=== PATIENT | female | born 1955 | race Caucasian/White ===

== ENCOUNTER 2017-08-29 00:02 | Emergency (ER) | payer BC ==
[~2017-08-29] VITALS: Ht 162.6 cm; Wt 59.0 kg
[2017-08-29] MEDS ORDERED: ARMOUR THYROID30 MG ORAL (00:18)
--- NOTE | 2017-08-29 00:40 | Emergency Room Report ---
History of Present Illness General Chief Complaint: Abdominal Pain Source: Patient Present Illness HPI Is a 62-year-old female who has a history of abdominal pain in the past. It has been doing well since she is taking 2 of eating diet. Last few days she's been start eating meat again and not watching which it. Tonight she started having abdominal pain with bloating and nausea and vomiting. No diarrhea. Pain is crampy and sharp in nature. 8/10. Nothing made it better. Movement made it worse. Denies any trauma. Workup for abdominal pain including ultrasound and CT. Both were negative in the past. Allergies: Coded Allergies: TETRACYCLINES (Verified Allergy, Unknown, 08/29/17) Uncoded Allergies: FRAGRANCES (Allergy, Unknown, 08/29/17) Patient History Past Medical History: see triage record, old chart reviewed Past Surgical History: other Pertinent Family History: none Last Menstrual Period: n/a Now: No Immunizations: other Reviewed Nursing Documentation: PMH: Agreed, PSxH: Agreed Nursing Documentation-PM Past Medical History: No History, Except For Review of Systems Eye: Denies: eye pain, blurred vision ENT: Denies: ear pain, nose congestion, throat swelling Respiratory: Denies: cough, shortness of breath Cardiovascular: Denies: chest pain, palpitations Gastrointestinal: Reports: abdominal pain, nausea, vomiting, Denies: diarrhea Musculoskeletal: Denies: back pain, joint pain Skin: Denies: rash Neurological: Denies: headache, numbness Endocrine: Denies: increased thirst, increased urine Hematologic/Lymphatic: Denies: easy bruising All Other Systems: negative except mentioned in HPI Physical Exam Vital Signs Date Time Temp Pulse Resp B/P (MAP) Pulse Ox O2 Delivery O2 Flow Rate FiO2 08/29/17 00:13 97.9 74 16 99 Room Air vitals normal Sp02 EP Interpretation: reviewed, normal General Appearance: well appearing, no apparent distress, alert Head: normocephalic, atraumatic Eyes: bilateral eye PERRL, bilateral eye EOMI ENT: hearing grossly normal, normal pharynx Neck: full range of motion, supple, no meningismus Respiratory: chest non-tender, lungs clear, normal breath sounds Cardiovascular #1: regular rate, rhythm, no murmur Gastrointestinal: no mass, no organomegaly, no bruit, non-distended, abnormal bowel sounds - Hyperactive, tenderness - Mild, diffuse Musculoskeletal: back normal, gait/station normal, normal range of motion Psychiatric: mood/affect normal Skin: warm/dry Medical Decision Making Diagnostic Impression: Primary Impression: Abdominal pain Qualified Codes: R10.13 - Epigastric pain Additional Impression: Cholelithiasis Qualified Codes: K80.20 - Calculus of gallbladder without cholecystitis without obstruction ER Course She with abdominal pain and has CT confirmed cholelithiasis. Her pain is well- controlled now. No evidence of obstruction or infection. We'll discharge home. Lab Results Impression labs normal CT/MRI/US Diagnostic Results CT/MRI/US Diagnostic Results : Imaging Test Ordered: CT abdomen and pelvis Impression read by radiologist. Gallstone. No obstruction. No appendicitis. Last Vital Signs Date Time Temp Pulse Resp B/P (MAP) Pulse Ox O2 Delivery O2 Flow Rate FiO2 08/29/17 00:13 97.9 74 16 99 Room Air Status: improved Disposition: HOME, SELF-CARE Condition: Stable Scripts Acetaminophen With Codeine (T#3) (TYLENOL #3 TAB*) Y Tab 1 TAB ORAL Q8H Y for For Pain, #20 TAB Prov: ZHOU DEAN M.D. 08/29/17 Referrals: NON PHYSICIAN (PCP) Additional Instructions: Followup with your DrMaynor in 2-3 days and not better. Recommend referral to see a surgeon. Return if worse. ZHOU DEAN M.D. Aug 29, 2017 00:40
[2017-08-29] MEDS ORDERED: Ketorolac 30mg Inj IV ONE (00:45)
[2017-08-29 01:05] LABS: MEAN CORPUSCULAR HEMOGLOBIN 29.5 PG (27.0-31.0); MEAN CORPUSCULAR HGB CONC 33.8 G/DL (32.0-36.0); MEAN CORPUSCULAR VOLUME 87 FL (80-99); MEAN PLATELET VOLUME 6.2 FL (6.5-10.1); PLATELET COUNT 239 K/UL (150-450); RED BLOOD COUNT 4.49 M/UL (4.20-5.40); RED CELL DISTRIBUTION WIDTH 11.1 % (11.6-14.8); WHITE BLOOD COUNT 10.3 K/UL (4.8-10.8)
[2017-08-29 01:15] LABS: ANION GAP 6 mmol/L (5-15); CALCIUM 8.8 MG/DL (8.5-10.1); CARBON DIOXIDE 28 MMOL/L (21-32); CHLORIDE 104 MMOL/L (98-107); CREATININE 0.8 MG/DL (0.55-1.30); GLOMERULAR FILTRATION RATE > 60 mL/min (>60); POTASSIUM 3.5 MMOL/L (3.5-5.1); SODIUM 138 MMOL/L (136-145)
[2017-08-29 01:20] LABS: ALANINE AMINOTRANSFERASE 25 U/L (12-78); ALBUMIN/GLOBULIN RATIO 0.9 (1.0-2.7); ASPARTATE AMINO TRANSFERASE 15 U/L (15-37); LIPASE 145 U/L (73-393); TOTAL PROTEIN 7.4 G/DL (6.4-8.2)
[2017-08-29] MEDS ORDERED: Morphine Sulfate 4mg/ml Inj IVP ONE (01:30)
[2017-08-29] MEDS ORDERED: ACETAMINOPHEN-1 EAC1 ORAL (02:58)
[2017-08-29 03:00] VITALS: BP 118/70
[2017-08-29 03:15] VITALS: BP 118/70
--- NOTE | 2017-08-29 10:26 | Diagnostic Imaging Report ---
Clinical Indication: Right upper quadrant abdominal pain Technique: No oral contrast utilized, per emergency room physician request IV administration nonionic contrast. Venous phase spiral acquisition obtained through the abdomen and pelvis. Multiplanar reconstructions were generated. Total dose length product 850 mGycm. CTDIvol(s) 17 mGy. Dose reduction achieved using automated exposure control Comparison: None Findings: The appendix is normal. There is equivocal wall thickening of the sigmoid colon. Probably an artifact of under distention. No definite evidence of diverticulosis. There are equivocally a few small colonic diverticula. No small bowel distention. No free or loculated intraperitoneal air or fluid is evident. Gallbladder contains gallstones. There is no wall thickening or pericholecystic fluid. The liver, bile ducts, pancreas, spleen, are unremarkable. There are left renal parapelvic cysts. No retroperitoneal or mesenteric mass or adenopathy. No pelvic mass or adenopathy. The included lung bases are clear. The bones are unremarkable Impression: No definite acute process Cholelithiasis. No secondary signs of acute cholecystitis Equivocal colonic diverticulosis. No evidence of diverticulitis Equivocal sigmoid wall thickening, most likely an artifact of under distention, mild colitis changes not completely excludable but unlikely Incidental finding left renal parapelvic cysts The CT scanner at [facility]– [place] is accredited by the [employer] and the scans are performed using protocols designed to limit radiation exposure to as low as reasonably achievable to attain images of sufficient resolution adequate for diagnostic evaluation.
== END 2017-08-29 03:15 | disposition home or self-care (01) ==
LOC: EMR 00:37
DX: K80.20 Calculus of gallbladder without cholecystitis without obstruction (principal); R10.13 Epigastric pain; Z88.1 Allergy status to other antibiotic agents
CPT/HCPCS: 36415; 74177; 80053; 83690; 85025; 96361; 96374; 96375; 99284; J1885; J2270; J2405; Q9967

== ENCOUNTER 2017-09-19 21:18 | Inpatient (IN) | payer BC ==
[~2017-09-19] VITALS: Ht 162.6 cm; Wt 68.0 kg
[~2017-09-19 21:18] MED LIST: ACETAMINOPHEN-1 EAC1 ORAL; ARMOUR THYROID30 MG ORAL
[2017-09-19] MEDS ORDERED: Morphine Sulfate 4mg/ml Inj IVP ONE (22:15)
[2017-09-19] MEDS ORDERED: Tubing IV Cassette IV ONE (22:21)
[2017-09-19 22:32] LABS: EOSINOPHILS % (AUTO) 1.8 % (0.0-3.0); LYMPHOCYTES % (AUTO) 16.6 % (20.0-45.0); MEAN CORPUSCULAR HEMOGLOBIN 27.4 PG (27.0-31.0); MEAN CORPUSCULAR HGB CONC 30.7 G/DL (32.0-36.0); MEAN CORPUSCULAR VOLUME 89 FL (80-99); MEAN PLATELET VOLUME 5.7 FL (6.5-10.1); MONOCYTES % (AUTO) 6.1 % (1.0-10.0); NEUTROPHILS % (AUTO) 74.5 % (45.0-75.0); PLATELET COUNT 243 K/UL (150-450); RED BLOOD COUNT 4.61 M/UL (4.20-5.40); RED CELL DISTRIBUTION WIDTH 11.3 % (11.6-14.8); WHITE BLOOD COUNT 8.6 K/UL (4.8-10.8)
[2017-09-19 22:44] LABS: ANION GAP 8 mmol/L (5-15); CALCIUM 7.7 MG/DL (8.5-10.1); CARBON DIOXIDE 26 MMOL/L (21-32); CHLORIDE 102 MMOL/L (98-107); CREATININE 0.7 MG/DL (0.55-1.30); GLOMERULAR FILTRATION RATE > 60 mL/min (>60); POTASSIUM 3.5 MMOL/L (3.5-5.1); SODIUM 136 MMOL/L (136-145)
[2017-09-19 22:49] LABS: ALANINE AMINOTRANSFERASE 19 U/L (12-78); ALBUMIN/GLOBULIN RATIO 0.9 (1.0-2.7); ASPARTATE AMINO TRANSFERASE 20 U/L (15-37); LIPASE 448 U/L (73-393); TOTAL PROTEIN 7.7 G/DL (6.4-8.2)
--- NOTE | 2017-09-19 23:58 | Emergency Room Report ---
History of Present Illness General Chief Complaint: Abdominal Pain Source: Patient Present Illness HPI Quadrant pain after eating dairy yesterday. Pain is 10/10 she feels nauseated. She was seen recently with a CT which diagnosed gallstones. She got better with morphine and Zofran. CT 08/29 Impression: No definite acute process Cholelithiasis. No secondary signs of acute cholecystitis Equivocal colonic diverticulosis. No evidence of diverticulitis Equivocal sigmoid wall thickening, most likely an artifact of under distention, mild colitis changes not completely excludable but unlikely Incidental finding left renal parapelvic cysts Allergies: Coded Allergies: TETRACYCLINES (Verified Allergy, Unknown, 08/29/17) Uncoded Allergies: FRAGRANCES (Allergy, Unknown, 08/29/17) Patient History Past Medical History: see triage record Social History: Reports: alcohol use Social History Narrative with partner Now: No Reviewed Nursing Documentation: PMH: Agreed, PSxH: Agreed Nursing Documentation-PMH Past Medical History: No History, Except For Physical Exam Vital Signs Date Time Temp Pulse Resp B/P (MAP) Pulse Ox O2 Delivery O2 Flow Rate FiO2 09/19/17 21:30 97.5 80 16 140/82 100 Room Air Medical Decision Making Diagnostic Impression: Primary Impression: Biliary colic Additional Impression: Acute biliary pancreatitis Qualified Codes: K85.10 - Biliary acute pancreatitis without necrosis or infection ER Course Patient presents with RUQ pain and recent diagnosis of gall stones. Ddx: cholecystitis, biliary colic, pancreatitis, PUD amongst others. Evaluation with be with labs and the patient will be treated with IV hydration and analgesia. Depending on pain response, consider U/S. Labs with normal WBC. Minimally elevated lipase. LFTs not significantly elevated. She staill has significant pain and minimal guarding. Ultrasound is ordered and also pain medicines repeated. The patient is going to be admitted for observation as pain still significant. Still pain after second dose of morphine. Improved after fentanyl and reglan. U/S without fluid, obstruction. Admit med, Dr. Parsons. Consult with Dr. Terry. Laboratory Tests Test 09/19/17 22:20 White Blood Count 8.6 K/UL (4.8-10.8) Red Blood Count 4.61 M/UL (4.20-5.40) Hemoglobin 12.7 G/DL (12.0-16.0) Hematocrit 41.2 % (37.0-47.0) Mean Corpuscular Volume 89 FL (80-99) Mean Corpuscular Hemoglobin 27.4 PG (27.0-31.0) Mean Corpuscular Hemoglobin Concent 30.7 G/DL (32.0-36.0) L Red Cell Distribution Width 11.3 % (11.6-14.8) L Platelet Count 243 K/UL (150-450) Mean Platelet Volume 5.7 FL (6.5-10.1) L Neutrophils (%) (Auto) 74.5 % (45.0-75.0) Lymphocytes (%) (Auto) 16.6 % (20.0-45.0) L Monocytes (%) (Auto) 6.1 % (1.0-10.0) Eosinophils (%) (Auto) 1.8 % (0.0-3.0) Basophils (%) (Auto) 1.0 % (0.0-2.0) Sodium Level 136 MMOL/L (136-145) Potassium Level 3.5 MMOL/L (3.5-5.1) Chloride Level 102 MMOL/L (98-107) Carbon Dioxide Level 26 MMOL/L (21-32) Anion Gap 8 mmol/L (5-15) Blood Urea Nitrogen 18 mg/dL (7-18) Creatinine 0.7 MG/DL (0.55-1.30) Estimate Glomerular Filtration Rate > 60 mL/min (>60) Glucose Level 119 MG/DL (74-106) H Calcium Level 7.7 MG/DL (8.5-10.1) L Total Bilirubin 0.2 MG/DL (0.2-1.0) Aspartate Amino Transferase (AST) 20 U/L (15-37) Alanine Aminotransferase (ALT) 19 U/L (12-78) Alkaline Phosphatase 67 U/L (46-116) Total Protein 7.7 G/DL (6.4-8.2) Albumin 3.6 G/DL (3.4-5.0) Globulin 4.1 g/dL Albumin/Globulin Ratio 0.9 (1.0-2.7) L Lipase 448 U/L (73-393) H CT/MRI/US Diagnostic Results CT/MRI/US Diagnostic Results : Imaging Test Ordered: US Impression stones, no obstruction or pericolic fluid. Status: improved Disposition: ADMITTED INPATIENT Condition: Serious Referrals: NON PHYSICIAN (PCP) Papi Orozco M.D. Sep 19, 2017 23:58
[2017-09-20] MEDS ORDERED: Morphine Sulfate 4mg/ml Inj IVP ONE
[2017-09-20] MEDS ORDERED: DiphenhydrAMINE 50mg/ml Inj IVP ONE (01:15)
[2017-09-20] MEDS ORDERED: Metoclopramide 10mg/2ml Inj IVP ONE (01:15)
[2017-09-20] MEDS ORDERED: fentaNYL 100 mcg/2 mL IV ONE (01:15)
[2017-09-20] MEDS ORDERED: Zolpidem 5mg tab ORAL PRN (01:45)
[2017-09-20] MEDS ORDERED: HYDROmorphone 1mg/ml Carpuject IVP PRN (01:45)
[2017-09-20] MEDS ORDERED: Piperacillin/Tazobactam 2.25 GM in NS 55 ML IVPB SCH (02:00)
[2017-09-20] MEDS: D5 1/2NS 1,000 ML IV SCH ×2 (02:34→10:43)
[2017-09-20] MEDS ORDERED: Zosyn 3.375gm inj ONE (04:02)
[2017-09-20] MEDS: NS IVPB SCH ×3 (04:19→20:09)
[2017-09-20] MEDS: ZOSYN IVPB SCH ×3 (04:19→20:09)
[2017-09-20 04:38] VITALS: BP 98/62
[2017-09-20 09:21] LABS: APPEARANCE,URINE CLEAR; KETONES,URINE NEGATIVE (NEGATIVE); LEUKOCYTE ESTERASE ,URINE NEGATIVE (NEGATIVE); NITRITE,URINE NEGATIVE (NEGATIVE); PH,URINE 5 (4.5-8.0); PROTEIN,URINE NEGATIVE (NEGATIVE); UROBILINOGEN,URINE NORMAL MG/DL (0.0-1.0)
[2017-09-20 09:37] LABS: BACTERIA,URINE FEW /HPF; RBC,URINE 0-2 /HPF (0 - 2); SQUAMOUS EPITHELIAL CELL,UR FEW /LPF (NONE/OCC); WBC,URINE 0-2 /HPF (0 - 2)
[2017-09-20] MEDS: Pantoprazole Inj IV SCH (09:59)
--- NOTE | 2017-09-20 11:51 | History & Physical ---
History and Physical History & Physicial HP dictated # [id number] MARIA DEL CARMEN VILLA Sep 20, 2017 11:51
[2017-09-20 12:21] VITALS: BP 106/67
--- NOTE | 2017-09-20 12:50 | Consultation ---
History of Present Illness General Date patient seen: Sep 20, 2017 Chief Complaint: Abdominal Pain Reason for Consultation: gallstone pancreatitis Present Illness HPI 62 year old female presented to ED complaining of severe RUQ/epigastric pain x 1 day. States that soon after having dairy she began to experience worsening RUQ /epi abdominal pain. Pain described as sharp cramping 10/10 pain that was associated with nausea and non bloody emesis. As pain was so severe she came to ED for evaluation. Was given narcotic pain medication with only minimal relief initially. Has had episodes similar to this prior. First episode was 20 years ago and she has had intermittent episodes over the years since. most recent episode prior to this was 2 weeks ago where pain resolved without medical intervention. states episodes usually related to oral PO intake. worse with fatty foods and dairy. she has become a vegan over the years and has improved. this episodes more severe than prior episodes and character of pain different with epigastric pain as well. In 08/29/[address] scan which demonstrated gallstones but no acute gallbladder process. Surgery called to evaluate. when seen at bedside patient states she is feeling better. nausea and emesis have resolved and pain is improved with narcotic pain meds. When asked about social history she denies tobacco, drugs, and EtOH. states she rarely has a drink and only socially if that. Allergies: Coded Allergies: TETRACYCLINES (Verified Allergy, Unknown, 08/29/17) Uncoded Allergies: FRAGRANCES (Allergy, Unknown, 08/29/17) Medication History Scheduled Thyroid* (Taiban Thyroid*), 60 MG ORAL DAILY, (Reported) Scheduled PRN Acetaminophen With Codeine (T#3) (Tylenol #3 Tab*), 1 TAB ORAL Q8H PRN for For Pain Patient History History Provided By: Patient Healthcare decision maker Resuscitation status Advanced Directive on File Past Medical/Surgical History Past Medical/Surgical History: (1) Acute gallstone pancreatitis (2) Biliary colic (3) Acute biliary pancreatitis Review of Systems Constitutional: Denies: no symptoms, see HPI, chills, sweats, fever, malaise, weakness, other Eye: Denies: no symptoms, see HPI, eye pain, blurred vision, tearing, double vision, nose pain, nose congestion, acuity changes, discharge, other ENT: Denies: no symptoms, see HPI, ear pain, ear discharge, nose pain, nose congestion, throat pain, throat swelling, mouth pain, hearing loss, nasal discharge, other Respiratory: Denies: no symptoms, see HPI, cough, orthopnea, shortness of breath, stridor, wheezing, HUGGINS, sputum, other Cardiovascular: Denies: no symptoms, see HPI, chest pain, edema, palpitations, syncope, PND, other Gastrointestinal: Reports: abdominal pain, nausea, vomiting Genitourinary: Denies: no symptoms, see HPI, discharge, dysuria, frequency, hematuria, pain, retention, incontinence, urgency, vag bleed/dc, other Musculoskeletal: Denies: no symptoms, see HPI, back pain, gout, joint pain, joint swelling, muscle pain, muscle stiffness, other Skin: Denies: no symptoms, see HPI, rash, change in color, change in hair/nails , dryness, lesions, other Psychiatric: Denies: no symptoms, see HPI, prior hx, anxiety, depressed feelings, emotional problems, SI, HI, hallucinations, other Neurological: Denies: no symptoms, see HPI, headache, numbness, paresthesia, seizure, tingling, tremors, focal weakness, syncope, dizziness, other Endocrine: Denies: no symptoms, see HPI, excessive sweating, flushing, intolerance to temperature, increased thirst, increased urine, unexplained weight loss, other Hematologic/Lymphatic: Denies: no symptoms, see HPI, anemia, blood clots, easy bleeding, easy bruising, swollen glands, diathesis, other All Other Systems: negative except mentioned in HPI Physical Exam General Appearance: WD/WN, no apparent distress, alert Lines, tubes and drains: peripheral HEENT: normocephalic, mucous membranes moist, PERRL Neck: normal alignment, normal inspection Respiratory/Chest: lungs clear, normal breath sounds, no respiratory distress, no accessory muscle use Cardiovascular/Chest: normal peripheral pulses, normal rate, regular rhythm Abdomen: normal bowel sounds, soft, no organomegaly, no mass, other - tender in RUQ with deep palpation Extremities: normal range of motion Skin Exam: normal pigmentation, warm/dry Neurologic: alert, oriented x 3, responsive Last 24 Hour Vital Signs Date Time Temp Pulse Resp B/P (MAP) Pulse Ox O2 Delivery O2 Flow Rate FiO2 09/20/17 12:21 98.3 66 20 106/67 96 09/20/17 09:23 98.0 86 18 102/64 98 Room Air 09/20/17 04:38 98.0 86 18 98/62 98 Room Air 09/20/17 01:51 97.5 09/19/17 22:54 97.5 09/19/17 21:30 97.5 80 16 140/82 100 Room Air Intake and Output 09/19/17 09/20/17 19:00 07:00 Intake Total 1000 ml Balance 1000 ml Intake IV Total 1000 ml # Voids 1 Laboratory Tests Test 09/19/17 22:20 09/20/17 09:00 09/20/17 09:10 White Blood Count 8.6 K/UL (4.8-10.8) Red Blood Count 4.61 M/UL (4.20-5.40) Hemoglobin 12.7 G/DL (12.0-16.0) Hematocrit 41.2 % (37.0-47.0) Mean Corpuscular Volume 89 FL (80-99) Mean Corpuscular Hemoglobin 27.4 PG (27.0-31.0) Mean Corpuscular Hemoglobin Concent 30.7 G/DL (32.0-36.0) L Red Cell Distribution Width 11.3 % (11.6-14.8) L Platelet Count 243 K/UL (150-450) Mean Platelet Volume 5.7 FL (6.5-10.1) L Neutrophils (%) (Auto) 74.5 % (45.0-75.0) Lymphocytes (%) (Auto) 16.6 % (20.0-45.0) L Monocytes (%) (Auto) 6.1 % (1.0-10.0) Eosinophils (%) (Auto) 1.8 % (0.0-3.0) Basophils (%) (Auto) 1.0 % (0.0-2.0) Sodium Level 136 MMOL/L (136-145) Potassium Level 3.5 MMOL/L (3.5-5.1) Chloride Level 102 MMOL/L (98-107) Carbon Dioxide Level 26 MMOL/L (21-32) Anion Gap 8 mmol/L (5-15) Blood Urea Nitrogen 18 mg/dL (7-18) Creatinine 0.7 MG/DL (0.55-1.30) Estimat Glomerular Filtration Rate > 60 mL/min (>60) Glucose Level 119 MG/DL (74-106) H Calcium Level 7.7 MG/DL (8.5-10.1) L Total Bilirubin 0.2 MG/DL (0.2-1.0) Aspartate Amino Transf (AST/SGOT) 20 U/L (15-37) Alanine Aminotransferase (ALT/SGPT) 19 U/L (12-78) Alkaline Phosphatase 67 U/L (46-116) Total Protein 7.7 G/DL (6.4-8.2) Albumin 3.6 G/DL (3.4-5.0) Globulin 4.1 g/dL Albumin/Globulin Ratio 0.9 (1.0-2.7) L Lipase 448 U/L (73-393) H Urine Color Pale yellow Urine Appearance Clear Urine pH 5 (4.5-8.0) Urine Specific [place] 1.020 (1.005-1.035) Urine Protein Negative (NEGATIVE) Urine Glucose (UA) Negative (NEGATIVE) Urine Ketones Negative (NEGATIVE) Urine Occult Blood 1+ (NEGATIVE) H Urine Nitrite Negative (NEGATIVE) Urine Bilirubin Negative (NEGATIVE) Urine Urobilinogen Normal MG/DL (0.0-1.0) Urine Leukocyte Esterase Negative (NEGATIVE) Urine RBC 0-2 /HPF (0 - 2) Urine WBC 0-2 /HPF (0 - 2) Urine Squamous Epithelial Cells Few /LPF (NONE/OCC) Urine Bacteria Few /HPF (NONE) Amylase Level 57 U/L (25-115) Height (Feet): 5 Height (Inches): 4.00 Weight (Pounds): 140 Medications Current Medications Medications (Trade) Dose Ordered Sig/Anthony Route PRN Reason Start Time Stop Time Status Last Admin Dose Admin Acetaminophen (Tylenol) 650 mg Q4H PRN ORAL Mild Pain (Pain Scale 1-3) 09/20/17 01:45 10/20/17 01:44 Dextrose (Dextrose 50%) STAT PRN IV Hypoglycemia 09/20/17 01:45 10/20/17 01:44 Dextrose/Sodium Chloride 1,000 ml @ 75 mls/hr [id number] IV 09/20/17 02:34 10/20/17 02:33 09/20/17 10:43 Diphenhydramine HCl (Benadryl) 25 mg Q6H PRN ORAL Itching/Pruritis 09/20/17 01:45 10/20/17 01:44 Hydromorphone HCl (Dilaudid) 1 mg Q3H PRN IVP Moderate Pain (Pain Scale 4-6) 09/20/17 01:45 09/27/17 01:44 Hydromorphone HCl (Dilaudid) 2 mg Q3H PRN IVP Severe Pain (Pain Scale 7-10) 09/20/17 01:45 09/27/17 01:44 Ondansetron HCl (Zofran) 4 mg Q4H PRN IVP Nausea & Vomiting 09/20/17 01:45 10/20/17 01:44 Pantoprazole (Protonix) 40 mg DAILY IV 09/20/17 09:00 10/20/17 08:59 09/20/17 09:59 Piperacillin Sod/ Tazobactam Sod 3.375 gm/Sodium Chloride 55 ml @ 13.75 mls/ hr Q8H IVPB 09/20/17 03:00 09/27/17 02:59 09/20/17 11:29 Thyroid (Taiban Thyroid) 60 mg DAILY ORAL 09/20/17 09:00 10/20/17 08:59 09/20/17 09:59 Zolpidem Tartrate (Ambien) 5 mg HSPRN PRN ORAL Insomnia 09/20/17 01:45 09/27/17 01:44 Assessment/Plan Problem List: (1) Acute gallstone pancreatitis Assessment & Plan: 62F with >20yr history of biliary cholic/cholecystitis presents with episode of gallstone pancreatitis. c/o severe 10/10 RUQ/epi abdominal pain upon admission which has since improved with care. afebrile, HD stable, VSS. no leukocytosis, LFT's okay, lipase elevated. Ultrasound with cholelithiasis. CBD normal caliber. likely passed small stone. no evidence of choledocholithiasis at this time. fortunately pancreatitis mild and resolving. given history and recent events recommend cholecystectomy. discussed findings with patient including risks, benefits and alternatives in detail. will schedule for lap vs open bakari tomorrow okay for sips of clears npo after midnight IV fluids IV Abx consent ICD Codes: K85.10 - Biliary acute pancreatitis without necrosis or infection SNOMED: [id number] Status: stable Adolfo Terry Sep 20, 2017 12:50
--- NOTE | 2017-09-20 12:51 | Pre-Procedure Note/Attestation ---
Pre-Procedure Note/Attestation Complete Prior to Procedure Planned Procedure: not applicable Procedure Narrative: laparoscopic cholecystectomy; possible bakari Indications for Procedure Pre-Operative Diagnosis: gallstone pancreatitis Attestation I attest that I discussed the nature of the procedure; its benefits; risks and complications; and alternatives (and the risks and benefits of such alternatives ), prior to the procedure, with the patient (or the patient's legal benefits representative). I attest that, if there was a reasonable possibility of needing a blood transfusion, the patient (or the patient's legal benefits representative) was given the [facility] standardized written summary, pursuant to the [place]ul[place] Blood Safety Act ([place] Health and Safety Code # 1645, as amended). I attest that I re-evaluated the patient just prior to the surgery and that there has been no change in the patient's H&P, except as documented below: Adolfo Terry Sep 20, 2017 12:51
--- NOTE | 2017-09-20 14:21 | Diagnostic Imaging Report ---
Indication:Abdominal pain Technique: Grayscale and duplex Doppler imaging of the abdomen performed. Comparison: None Findings: Gallstones are present. No definite gallbladder wall thickening is seen. Sonographic Cunha's is negative but the patient was medicated and therefore the sign is not reliable. The liver, demonstrated part of the pancreas, aorta and IVC, both kidneys, spleen appear unremarkable. There is no biliary ductal dilatation identified. Doppler evaluation of the main portal vein shows patency. There is no ascites. No hydronephrosis seen. CBD is 4 mm. Impression: Cholelithiasis
--- NOTE | 2017-09-20 14:30 | GI Initial Consult Note ---
Doris Dean NBrijesh 09/20/17 1430: History of Present Illness General Date patient seen: Sep 20, 2017 Time patient seen: 14:31 Reason for Hospitalization: Abdominal Pain Referring physician: MARIA DEL CARMEN VILLA Reason for Consultation: gallstone pancreatitis Present Illness HPI 62 year old female presented to ED complaining of severe RUQ/epigastric pain x 1 day. States that soon after having dairy she began to experience worsening RUQ /epi abdominal pain. Pain described as sharp cramping 10/10 pain that was associated with nausea and non bloody emesis. As pain was so severe she came to ED for evaluation. Was given narcotic pain medication with only minimal relief initially. Has had episodes similar to this prior. First episode was 20 years ago and she has had intermittent episodes over the years since. most recent episode prior to this was 2 weeks ago where pain resolved without medical intervention. states episodes usually related to oral PO intake. worse with fatty foods and dairy. she has become a vegan over the years and has improved. this episodes more severe than prior episodes and character of pain different with epigastric pain as well. In 08/29/[address] scan which demonstrated gallstones but no acute gallbladder process. When seen at bedside patient states she is feeling better. nausea and emesis have resolved and pain is improved with narcotic pain meds. When asked about social history she denies tobacco, drugs, and EtOH. states she rarely has a drink and only socially if that. No leukocytosis. No transaminitis or hyperbilirubinemia. Patient presents today with elevated lipase levels. CT 08/29 Impression: No definite acute process Cholelithiasis. No secondary signs of acute cholecystitis Equivocal colonic diverticulosis. No evidence of diverticulitis Equivocal sigmoid wall thickening, most likely an artifact of under distention, mild colitis changes not completely excludable but unlikely Incidental finding left renal parapelvic cysts Home Meds Active Scripts Acetaminophen With Codeine (T#3) (TYLENOL #3 TAB*) Y Tab, 1 TAB ORAL Q8H Y for For Pain, #20 TAB Prov:ZHOU DEAN M.D. 08/29/17 Reported Medications Docusate Sodium* (COLACE*) 100 Mg Capsule, 100 MG ORAL TWICE A DAY, #60 CAP 09/22/17 Hydrocodone Bit/Acetaminophen 5-325* (NORCO 5-325 TABLET*) 1 Each Tablet, 1 TAB ORAL Q4H Y for For Pain, #30 TAB 09/22/17 Thyroid* (INA THYROID*) 30 Mg Tablet, 60 MG ORAL DAILY, TAB 0 Refills 08/29/17 Med list reviewed/reconciled: Yes Allergies: Coded Allergies: TETRACYCLINES (Verified Allergy, Unknown, 08/29/17) Uncoded Allergies: FRAGRANCES (Allergy, Unknown, 08/29/17) Patient History Limited by: medical condition History Provided By: Patient, Medical Record PMH Narrative Past Medical/Surgical History: (1) Acute gallstone pancreatitis (2) Biliary colic (3) Acute biliary pancreatitis Social History: Reports: alcohol use Social History Narrative with partner Now: No Reviewed Nursing Documentation: PMH: Agreed, PSxH: Agreed Nursing Documentation-PM Past Medical History: No History, Except For Social History: Denies: smoking, alcohol use, drug use, other Review of Systems All Other Systems: negative except mentioned in HPI Physical Exam Vital Signs Date Time Temp Pulse Resp B/P (MAP) Pulse Ox O2 Delivery O2 Flow Rate FiO2 09/19/17 21:30 97.5 80 16 140/82 100 Room Air Sp02 EP Interpretation: reviewed, normal Labs Laboratory Tests Test 09/19/17 22:20 09/20/17 09:00 09/20/17 09:10 White Blood Count 8.6 K/UL (4.8-10.8) Red Blood Count 4.61 M/UL (4.20-5.40) Hemoglobin 12.7 G/DL (12.0-16.0) Hematocrit 41.2 % (37.0-47.0) Mean Corpuscular Volume 89 FL (80-99) Mean Corpuscular Hemoglobin 27.4 PG (27.0-31.0) Mean Corpuscular Hemoglobin Concent 30.7 G/DL (32.0-36.0) L Red Cell Distribution Width 11.3 % (11.6-14.8) L Platelet Count 243 K/UL (150-450) Mean Platelet Volume 5.7 FL (6.5-10.1) L Neutrophils (%) (Auto) 74.5 % (45.0-75.0) Lymphocytes (%) (Auto) 16.6 % (20.0-45.0) L Monocytes (%) (Auto) 6.1 % (1.0-10.0) Eosinophils (%) (Auto) 1.8 % (0.0-3.0) Basophils (%) (Auto) 1.0 % (0.0-2.0) Sodium Level 136 MMOL/L (136-145) Potassium Level 3.5 MMOL/L (3.5-5.1) Chloride Level 102 MMOL/L (98-107) Carbon Dioxide Level 26 MMOL/L (21-32) Anion Gap 8 mmol/L (5-15) Blood Urea Nitrogen 18 mg/dL (7-18) Creatinine 0.7 MG/DL (0.55-1.30) Estimat Glomerular Filtration Rate > 60 mL/min (>60) Glucose Level 119 MG/DL (74-106) H Calcium Level 7.7 MG/DL (8.5-10.1) L Total Bilirubin 0.2 MG/DL (0.2-1.0) Aspartate Amino Transf (AST/SGOT) 20 U/L (15-37) Alanine Aminotransferase (ALT/SGPT) 19 U/L (12-78) Alkaline Phosphatase 67 U/L (46-116) Total Protein 7.7 G/DL (6.4-8.2) Albumin 3.6 G/DL (3.4-5.0) Globulin 4.1 g/dL Albumin/Globulin Ratio 0.9 (1.0-2.7) L Lipase 448 U/L (73-393) H Urine Color Pale yellow Urine Appearance Clear Urine pH 5 (4.5-8.0) Urine Specific [place] 1.020 (1.005-1.035) Urine Protein Negative (NEGATIVE) Urine Glucose (UA) Negative (NEGATIVE) Urine Ketones Negative (NEGATIVE) Urine Occult Blood 1+ (NEGATIVE) H Urine Nitrite Negative (NEGATIVE) Urine Bilirubin Negative (NEGATIVE) Urine Urobilinogen Normal MG/DL (0.0-1.0) Urine Leukocyte Esterase Negative (NEGATIVE) Urine RBC 0-2 /HPF (0 - 2) Urine WBC 0-2 /HPF (0 - 2) Urine Squamous Epithelial Cells Few /LPF (NONE/OCC) Urine Bacteria Few /HPF (NONE) Amylase Level 57 U/L (25-115) General Appearance: well appearing, no apparent distress, alert Head: normocephalic EENT: PERRL/EOMI, normal ENT inspection Neck: supple Respiratory: normal breath sounds, no respiratory distress Cardiovascular: normal rate Gastrointestinal: normal inspection, non tender, soft, normal bowel sounds, non -distended Rectal: deferred Genitourinary: no CVA tenderness Musculoskeletal: normal inspection, back normal Neurologic: normal inspection, alert, oriented x3, responsive Psychiatric: normal inspection, judgement/insight normal, memory normal Skin: normal inspection, normal color, no rash, warm/dry, palpation normal, well hydrated Lymphatic: normal inspection, no adenopathy Current Medications Current Medications Medications (Trade) Dose Ordered Sig/Anthony Route PRN Reason Start Time Stop Time Status Last Admin Dose Admin Acetaminophen (Tylenol) 650 mg Q4H PRN ORAL Mild Pain (Pain Scale 1-3) 09/20/17 01:45 10/20/17 01:44 Dextrose (Dextrose 50%) STAT PRN IV Hypoglycemia 09/20/17 01:45 10/20/17 01:44 Dextrose/Sodium Chloride 1,000 ml @ 75 mls/hr [id number] IV 09/20/17 02:34 10/20/17 02:33 09/20/17 10:43 Diphenhydramine HCl (Benadryl) 25 mg Q6H PRN ORAL Itching/Pruritis 09/20/17 01:45 10/20/17 01:44 Hydromorphone HCl (Dilaudid) 1 mg Q3H PRN IVP Moderate Pain (Pain Scale 4-6) 09/20/17 01:45 09/27/17 01:44 Hydromorphone HCl (Dilaudid) 2 mg Q3H PRN IVP Severe Pain (Pain Scale 7-10) 09/20/17 01:45 09/27/17 01:44 Ondansetron HCl (Zofran) 4 mg Q4H PRN IVP Nausea & Vomiting 09/20/17 01:45 10/20/17 01:44 Pantoprazole (Protonix) 40 mg DAILY IV 09/20/17 09:00 10/20/17 08:59 09/20/17 09:59 Piperacillin Sod/ Tazobactam Sod 3.375 gm/Sodium Chloride 55 ml @ 13.75 mls/ hr Q8H IVPB 09/20/17 03:00 09/27/17 02:59 09/20/17 11:29 Thyroid ([place] Thyroid) 60 mg DAILY ORAL 09/20/17 09:00 10/20/17 08:59 09/20/17 09:59 Zolpidem Tartrate (Ambien) 5 mg HSPRN PRN ORAL Insomnia 09/20/17 01:45 09/27/17 01:44 GI: Plan Problems: (1) Acute biliary pancreatitis (2) Biliary colic (3) Acute gallstone pancreatitis Plan fu surgical recs CLD today, NPO @ [place] for cholecystectomy hold all blood thinners pain mgmt IV hydration fu labs outpatient GI procedures Discussed with Dr. Ochoa. Thank you for this patient referral, we will follow. HELLEN OCHOA 09/27/17 1219: History of Present Illness General Reason for Hospitalization: Abdominal Pain Present Illness Home Meds Active Scripts Acetaminophen With Codeine (T#3) (TYLENOL #3 TAB*) Y Tab, 1 TAB ORAL Q8H Y for For Pain, #20 TAB Prov:ZHOU DEAN M.D. 08/29/17 Reported Medications Docusate Sodium* (COLACE*) 100 Mg Capsule, 100 MG ORAL TWICE A DAY, #60 CAP 09/22/17 Hydrocodone Bit/Acetaminophen 5-325* (NORCO 5-325 TABLET*) 1 Each Tablet, 1 TAB ORAL Q4H Y for For Pain, #30 TAB 09/22/17 Thyroid* (ARMOUR THYROID*) 30 Mg Tablet, 60 MG ORAL DAILY, TAB 0 Refills 08/29/17 Allergies: Coded Allergies: TETRACYCLINES (Verified Allergy, Unknown, 08/29/17) Uncoded Allergies: FRAGRANCES (Allergy, Unknown, 08/29/17) GI: Plan Plan The patient was seen and examined at bedside and all new and available data was reviewed in the patients chart. I agree with the above findings, impression and plan. (Patient seen earlier today. Signature stamp does not reflect patient encounter time.). - MD Dinorah Rodriguez,[facility] Matthieu N.P. Sep 20, 2017 14:30 HELLEN OCHOA Sep 27, 2017 12:19
[2017-09-20 16:00] VITALS: BP 113/65
--- NOTE | 2017-09-20 16:10 | Diagnostic Imaging Report ---
Indication: Dyspnea Comparison: None A single view chest radiograph was obtained. Findings: Cardiomediastinal appearance is within normal limits for age. Pulmonary vascularity is appropriate. The diaphragmatic contour is smooth and costophrenic angles are sharp. No pleural effusions are identified. The bones are unremarkable. Impression: No acute findings
--- NOTE | 2017-09-20 17:30 | History and Physical Report ---
DATE OF ADMISSION: 09/20/2017 CHIEF COMPLAINT: Severe abdominal pain. HISTORY OF PRESENT ILLNESS: This is a 62-year-old very pleasant white female, who has had abdominal pain for the past 20 years on and off. She had two previous CTs of the abdomen, which did not show any gallstones. Yesterday, she ate her lunch around 1 p.m. and around 6 p.m., she started having right upper quadrant abdominal pain, this increased in the intensity to 10/10 and she feels nauseated and finally came to the emergency room. The patient had a CT of the abdomen showing gallstones. However, there are no secondary signs of acute cholecystitis. There was colonic diverticulosis without evidence of diverticulitis. The patient had also elevated lipase to 448 and it was felt the patient may have gallstone pancreatitis. The patient was admitted for further care. PAST MEDICAL HISTORY: Includes for hypothyroidism otherwise unremarkable. MEDICATIONS: [place] Thyroid. ALLERGIES: Tetracycline. SOCIAL HISTORY: No history of smoking. The patient drinks socially. 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 She lives with a partner. REVIEW OF SYSTEMS: Noncontributory except what was mentioned. PHYSICAL EXAMINATION: GENERAL: The patient is a pleasant female, in no acute distress. VITAL SIGNS: Blood pressure is 102/64, pulse 86, temperature 98, respiratory rate 18. HEENT: [place] conjunctivae. Anicteric sclerae. NECK: Supple. LUNGS: Clear to auscultation. HEART: S1 and S2 without murmurs or rubs. ABDOMEN: Soft. There is tenderness in right upper quadrant. EXTREMITIES: No cyanosis or edema. LABORATORY FINDINGS: The CBC shows a WBC of 8.6, hemoglobin 12.7, hematocrit 41.2, platelets 243,000. The chemistry panel shows a serum sodium of 136, potassium 3.5, chloride 102, CO2 26, BUN 18, creatinine 0.7, glucose 119, calcium 7.7. The repeat amylase this morning was 57. AST 20 and ALT 19 yesterday. ASSESSMENT: This is a 62-year-old female who is admitted with severe abdominal pain in right upper quadrant and now CT confirmed the patient has gallstones so biliary colic is the most likely diagnosis. Since the patient has some elevation of the lipase it is quite possible that the patient has gallstone pancreatitis as well. The amylase is low today so it may be showing some improvement. The patient is currently not requiring any pain medications although she was in severe pain yesterday and she had to be given fentanyl in the emergency room. PLAN: The patient was started on IV fluids. She is NPO at this point. I have asked Dr. Vázquez to see the patient in GI consultation, also Dr. Adolfo Terry for General Surgery. She may need to have a HIDA scan to see if the patient had acute cholecystitis. I put the patient empirically on IV Zosyn and she will likely need to have cholecystectomy in the near future and this will be decided by the surgeon. Also, the patient was started on IV Protonix and pain medication as mentioned that she has not required since admission. Bladimir Parsons M.D. DR: Beena JOB#: [id number] CC: GORDON
[2017-09-20] MEDS ORDERED: D5 1/2NS 1000ml IV ONE (18:07)
[2017-09-20] MEDS ORDERED: Tubing IV Secondary IV ONE (18:07)
[2017-09-20 20:00] VITALS: BP 104/62
--- NOTE | 2017-09-20 21:27 | General Progress Note ---
Assessment/Plan Assessment/Plan ECho is normal Pt is medically clear for surgery. Subjective Allergies: Coded Allergies: TETRACYCLINES (Verified Allergy, Unknown, 08/29/17) Uncoded Allergies: FRAGRANCES (Allergy, Unknown, 08/29/17) Objective Last 24 Hour Vital Signs Date Time Temp Pulse Resp B/P (MAP) Pulse Ox O2 Delivery O2 Flow Rate FiO2 09/20/17 16:10 98.3 09/20/17 16:00 98.3 75 18 113/65 97 09/20/17 12:21 98.3 66 20 106/67 96 09/20/17 09:23 98.0 86 18 102/64 98 Room Air 09/20/17 04:38 98.0 86 18 98/62 98 Room Air 09/20/17 01:51 97.5 09/19/17 22:54 97.5 09/19/17 21:30 97.5 80 16 140/82 100 Room Air Intake and Output 09/19/17 09/20/17 19:00 07:00 Intake Total 1000 ml Balance 1000 ml Intake IV Total 1000 ml # Voids 1 Laboratory Tests 09/19/17 22:20: White Blood Count 8.6, Red Blood Count 4.61, Hemoglobin 12.7, Hematocrit 41.2, Mean Corpuscular Volume 89, Mean Corpuscular Hemoglobin 27.4, Mean Corpuscular Hemoglobin Concent 30.7L, Red Cell Distribution Width 11.3L, Platelet Count 243 , Mean Platelet Volume 5.7L, Neutrophils (%) (Auto) 74.5, Lymphocytes (%) (Auto ) 16.6L, Monocytes (%) (Auto) 6.1, Eosinophils (%) (Auto) 1.8, Basophils (%) ( Auto) 1.0, Sodium Level 136, Potassium Level 3.5, Chloride Level 102, Carbon Dioxide Level 26, Anion Gap 8, Blood Urea Nitrogen 18, Creatinine 0.7, Estimat Glomerular Filtration Rate > 60, Glucose Level 119H, Calcium Level 7.7L, Total Bilirubin 0.2, Aspartate Amino Transf (AST/SGOT) 20, Alanine Aminotransferase ( ALT/SGPT) 19, Alkaline Phosphatase 67, Total Protein 7.7, Albumin 3.6, Globulin 4.1, Albumin/Globulin Ratio 0.9L, Lipase 448H 09/20/17 09:00: Urine Color Pale yellow, Urine Appearance Clear, Urine pH 5, Urine Specific [place] 1.020, Urine Protein Negative, Urine Glucose (UA) Negative, Urine Ketones Negative, Urine Occult Blood 1+H, Urine Nitrite Negative, Urine Bilirubin Negative, Urine Urobilinogen Normal, Urine Leukocyte Esterase Negative , Urine RBC 0-2, Urine WBC 0-2, Urine Squamous Epithelial Cells Few, Urine Bacteria Few 09/20/17 09:10: Amylase Level 57 Height (Feet): 5 Height (Inches): 4.00 Weight (Pounds): 150 MARIA DEL CARMEN VILLA Sep 20, 2017 21:27
[2017-09-21] VITALS (13 sets, daily range): BP systolic 102–130; BP diastolic 53–78
[2017-09-21] MEDS: NS IVPB SCH ×3 (02:50→18:36)
[2017-09-21] MEDS: ZOSYN IVPB SCH ×3 (02:50→18:36)
[2017-09-21] MEDS: D5 1/2NS 1,000 ML IV SCH ×2 (05:23→18:36)
[2017-09-21 06:45] LABS: PROTHROMBIN TIME 10.3 SEC (9.30-11.50)
[2017-09-21 07:00] LABS: ALANINE AMINOTRANSFERASE 24 U/L (12-78); ALBUMIN/GLOBULIN RATIO 0.8 (1.0-2.7); ANION GAP 6 mmol/L (5-15); ASPARTATE AMINO TRANSFERASE 17 U/L (15-37); BASOPHILS % (AUTO) 1.3 % (0.0-2.0); CALCIUM 7.5 MG/DL (8.5-10.1); CARBON DIOXIDE 29 MMOL/L (21-32); CHLORIDE 107 MMOL/L (98-107); CHOLESTEROL 218 MG/DL (< 200); CHOLESTEROL/HDL RATIO 3.1 (3.3-4.4); CREATININE 0.7 MG/DL (0.55-1.30); EOSINOPHILS % (AUTO) 9.2 % (0.0-3.0); GLOMERULAR FILTRATION RATE > 60 mL/min (>60); LYMPHOCYTES % (AUTO) 45.5 % (20.0-45.0); MEAN CORPUSCULAR HEMOGLOBIN 29.1 PG (27.0-31.0); MEAN CORPUSCULAR HGB CONC 32.4 G/DL (32.0-36.0); MEAN CORPUSCULAR VOLUME 90 FL (80-99); MEAN PLATELET VOLUME 6.7 FL (6.5-10.1); MONOCYTES % (AUTO) 9.2 % (1.0-10.0); NEUTROPHILS % (AUTO) 34.8 % (45.0-75.0); PLATELET COUNT 198 K/UL (150-450); POTASSIUM 3.2 MMOL/L (3.5-5.1); RED BLOOD COUNT 3.68 M/UL (4.20-5.40); RED CELL DISTRIBUTION WIDTH 11.5 % (11.6-14.8); SODIUM 142 MMOL/L (136-145); THYROID STIMULATING HORMONE 1.001 uiU/mL (0.358-3.740); TOTAL PROTEIN 6.8 G/DL (6.4-8.2); WHITE BLOOD COUNT 4.2 K/UL (4.8-10.8)
--- NOTE | 2017-09-21 07:37 | General Progress Note ---
Assessment/Plan Assessment/Plan Assessment - Recurrent RUQ pain - cholelithiasis - elevated Lipase - mildly depressed K Plans - NPO - Await cholecystectomy - Replace K Subjective Allergies: Coded Allergies: TETRACYCLINES (Verified Allergy, Unknown, 08/29/17) Uncoded Allergies: FRAGRANCES (Allergy, Unknown, 08/29/17) Subjective History reviewed above all noted Better today - minimal RUQ discomfort Patient scheduled for lap bakari today based on pain and elevated lipase Pt understands possibility of an alternate etiology resulting in persistent pain /problem after surgery Wants to proceed with surgery Objective Last 24 Hour Vital Signs Date Time Temp Pulse Resp B/P (MAP) Pulse Ox O2 Delivery O2 Flow Rate FiO2 09/21/17 04:00 97.5 80 19 108/53 95 Room Air 09/21/17 00:00 98.5 81 20 102/61 96 Room Air 09/20/17 20:00 97.7 76 18 104/62 95 09/20/17 16:10 98.3 09/20/17 16:00 98.3 75 18 113/65 97 09/20/17 12:21 98.3 66 20 106/67 96 09/20/17 09:23 98.0 86 18 102/64 98 Room Air Intake and Output 09/20/17 09/21/17 19:00 07:00 Intake Total 935.00 ml Balance 935.00 ml Intake IV Total 935.00 ml Laboratory Tests 09/20/17 09:00: Urine Color Pale yellow, Urine Appearance Clear, Urine pH 5, Urine Specific [place] 1.020, Urine Protein Negative, Urine Glucose (UA) Negative, Urine Ketones Negative, Urine Occult Blood 1+H, Urine Nitrite Negative, Urine Bilirubin Negative, Urine Urobilinogen Normal, Urine Leukocyte Esterase Negative , Urine RBC 0-2, Urine WBC 0-2, Urine Squamous Epithelial Cells Few, Urine Bacteria Few 09/20/17 09:10: Amylase Level 57 09/21/17 05:35: White Blood Count 4.2#L, Red Blood Count 3.68L, Hemoglobin 10.7L, Hematocrit 33.1L, Mean Corpuscular Volume 90, Mean Corpuscular Hemoglobin 29.1, Mean Corpuscular Hemoglobin Concent 32.4, Red Cell Distribution Width 11.5L, Platelet Count 198, Mean Platelet Volume 6.7, Neutrophils (%) (Auto) 34.8L, Lymphocytes (%) (Auto) 45.5H, Monocytes (%) (Auto) 9.2, Eosinophils (%) (Auto) 9.2H, Basophils (%) (Auto) 1.3, Prothrombin Time 10.3, Prothromb Time International Ratio 1.0, Activated Partial Thromboplast Time 26, Sodium Level 142, Potassium Level 3.2L, Chloride Level 107, Carbon Dioxide Level 29, Anion Gap 6, Blood Urea Nitrogen 5L, Creatinine 0.7, Estimat Glomerular Filtration Rate > 60, Glucose Level 96, Calcium Level 7.5L, Total Bilirubin 0.5, Aspartate Amino Transf (AST/SGOT) 17, Alanine Aminotransferase (ALT/SGPT) 24, Alkaline Phosphatase 58, Total Protein 6.8, Albumin 3.0L, Globulin 3.8, Albumin/Globulin Ratio 0.8L, Triglycerides Level 115, Cholesterol Level 218H, LDL Cholesterol 127H, HDL Cholesterol 70H, Cholesterol/HDL Ratio 3.1L, Lipase [Pending], Thyroid Stimulating Hormone (TSH) 1.001 Height (Feet): 5 Height (Inches): 4.00 Weight (Pounds): 150 Objective WDWN NCAT Supple CTA RRR abd soft ND NT no edema non focal ADRIANA ROLAND Sep 21, 2017 07:37
[2017-09-21] MEDS: Pantoprazole Inj IV SCH (09:27)
[2017-09-21] MEDS ORDERED: Lidocaine 1% 10mg/ml/Epi 0.005mg/ml 30ml vial INJ ONE (10:18)
--- NOTE | 2017-09-21 10:41 | GI Progress Note ---
Assessment/Plan Problems: (1) Acute gallstone pancreatitis ICD Codes: K85.10 - Biliary acute pancreatitis without necrosis or infection SNOMED: 151184671 (2) Acute biliary pancreatitis ICD Codes: K85.10 - Biliary acute pancreatitis without necrosis or infection SNOMED: 883256573 (3) Biliary colic ICD Codes: K80.50 - Calculus of bile duct without cholangitis or cholecystitis without obstruction SNOMED: 43068516 Status: stable Status Narrative Discussed with Dr. Ibarra. Assessment/Plan fu surgical recs >> cholecystectomy today pain mgmt IV hydration ppi fu labs outpatient GI procedures Subjective Gastrointestinal/Abdominal: Reports: abdominal pain Objective Last 24 Hour Vital Signs Date Time Temp Pulse Resp B/P (MAP) Pulse Ox O2 Delivery O2 Flow Rate FiO2 09/21/17 04:00 97.5 80 19 108/53 95 Room Air 09/21/17 00:00 98.5 81 20 102/61 96 Room Air 09/20/17 20:00 97.7 76 18 104/62 95 09/20/17 16:10 98.3 09/20/17 16:00 98.3 75 18 113/65 97 09/20/17 12:21 98.3 66 20 106/67 96 Intake and Output 09/20/17 09/21/17 19:00 07:00 Intake Total 935.00 ml Balance 935.00 ml Intake IV Total 935.00 ml Laboratory Tests Test 09/21/17 05:35 White Blood Count 4.2 K/UL (4.8-10.8) #L Red Blood Count 3.68 M/UL (4.20-5.40) L Hemoglobin 10.7 G/DL (12.0-16.0) L Hematocrit 33.1 % (37.0-47.0) L Mean Corpuscular Volume 90 FL (80-99) Mean Corpuscular Hemoglobin 29.1 PG (27.0-31.0) Mean Corpuscular Hemoglobin Concent 32.4 G/DL (32.0-36.0) Red Cell Distribution Width 11.5 % (11.6-14.8) L Platelet Count 198 K/UL (150-450) Mean Platelet Volume 6.7 FL (6.5-10.1) Neutrophils (%) (Auto) 34.8 % (45.0-75.0) L Lymphocytes (%) (Auto) 45.5 % (20.0-45.0) H Monocytes (%) (Auto) 9.2 % (1.0-10.0) Eosinophils (%) (Auto) 9.2 % (0.0-3.0) H Basophils (%) (Auto) 1.3 % (0.0-2.0) Prothrombin Time 10.3 SEC (9.30-11.50) Prothromb Time International Ratio 1.0 (0.9-1.1) Activated Partial Thromboplast Time 26 SEC (23-33) Sodium Level 142 MMOL/L (136-145) Potassium Level 3.2 MMOL/L (3.5-5.1) L Chloride Level 107 MMOL/L (98-107) Carbon Dioxide Level 29 MMOL/L (21-32) Anion Gap 6 mmol/L (5-15) Blood Urea Nitrogen 5 mg/dL (7-18) L Creatinine 0.7 MG/DL (0.55-1.30) Estimat Glomerular Filtration Rate > 60 mL/min (>60) Glucose Level 96 MG/DL (74-106) Calcium Level 7.5 MG/DL (8.5-10.1) L Total Bilirubin 0.5 MG/DL (0.2-1.0) Aspartate Amino Transf (AST/SGOT) 17 U/L (15-37) Alanine Aminotransferase (ALT/SGPT) 24 U/L (12-78) Alkaline Phosphatase 58 U/L (46-116) Total Protein 6.8 G/DL (6.4-8.2) Albumin 3.0 G/DL (3.4-5.0) L Globulin 3.8 g/dL Albumin/Globulin Ratio 0.8 (1.0-2.7) L Triglycerides Level 115 MG/DL (30-150) Cholesterol Level 218 MG/DL (< 200) H LDL Cholesterol 127 mg/dL (<100) H HDL Cholesterol 70 MG/DL (40-60) H Cholesterol/HDL Ratio 3.1 (3.3-4.4) L Lipase 137 U/L (73-393) Thyroid Stimulating Hormone (TSH) 1.001 uiU/mL (0.358-3.740) Height (Feet): 5 Height (Inches): 4.00 Weight (Pounds): 150 General Appearance: WD/WN, no apparent distress, alert, thin Cardiovascular: normal rate Respiratory/Chest: normal breath sounds, no respiratory distress Abdominal Exam: normal bowel sounds, non tender, soft Extremities: normal range of motion, non-tender Doris Copeland N.P. Sep 21, 2017 10:41
[2017-09-21] MEDS ORDERED: fentaNYL 100 mcg/2 mL IV ONE (11:30)
[2017-09-21] MEDS ORDERED: Glycopyrrolate 0.2mg/ml 1ml Vial ONE (11:30)
[2017-09-21] MEDS ORDERED: Zemuron 50mg/5ml Inj IV ONE (11:30)
[2017-09-21] MEDS ORDERED: Dexamethasone 4mg/ml vial ONE (11:30)
[2017-09-21] MEDS ORDERED: Midazolam 2mg/2ml Inj ONE (11:30)
[2017-09-21] MEDS ORDERED: Metoclopramide 10mg/2ml Inj ONE (11:30)
[2017-09-21] MEDS ORDERED: Esmolol 100mg/10ml Inj ONE (11:30)
[2017-09-21] MEDS ORDERED: NS Irrig 1000ml ONE (11:30)
[2017-09-21] MEDS ORDERED: Sterile Water Irrig 1000ml IRRIG ONE (11:30)
[2017-09-21] MEDS ORDERED: Neostigmine 1mg/ml 10ml Inj ONE (11:30)
[2017-09-21] MEDS ORDERED: Lidocaine 1% MPF 10mg/ml 5ml ONE (11:30)
[2017-09-21] MEDS ORDERED: Propofol 200mg/20ml IV ONE (11:30)
--- NOTE | 2017-09-21 13:00 | Cardiology Report ---
APPROVED REPORT EKG Measurement Heart [id number] Normal sinus rhythm Nonspecific T wave abnormality Abnormal ECG
--- NOTE | 2017-09-21 13:14 | Anethesia Preoperative Eval ---
Anesthesia Pre-op PMH/ROS General Date of Evaluation: Sep 21, 2017 Time of Evaluation: 11:30 Anesthesiologist: Marcos ASA Score: ASA 1 Mallampati Score Class I : Soft palate, uvula, fauces, pillars visible Class II: Soft palate, uvula, fauces visible Class III: Soft palate, base of uvula visible Class IV: Only hard plate visible Mallampati Classification: Class II Surgeon: Mara Diagnosis: acute biliary pancreatitis Surgical Procedure: Lap Cholecytectomy Anesthesia History: none Family History: no anesthesia problems Allergies: Coded Allergies: TETRACYCLINES (Verified Allergy, Unknown, 08/29/17) Uncoded Allergies: FRAGRANCES (Allergy, Unknown, 08/29/17) Medications: see eMAR Past Medical History Cardiovascular: Denies: HTN, CAD, TN, valve dz, arrhythmia, other Pulmonary: Denies: asthma, COPD, JACQUELINE, other Gastrointestinal/Genitourinary: Reports: other - ovarian cyst in past - removed , acute biliary pancreatitis Neurologic/Psychiatric: Denies: dementia, CVA, depression/anxiety, TIA, other Endocrine: Denies: DM, hypothyroidism, steroids, other HEENT: Denies: cataract (L), cataract (R), glaucoma, BUCK[place] (L), BU[place] (R), other Hematology/Immune: Denies: anemia, DVT, bleeding disorder, other Musculoskeletal/Integumentary: Denies: OA, RA, DJD, DDD, edema, other Anesthesia Pre-op Phys. Exam Physician Exam Last Vital Signs Date Time Temp Pulse Resp B/P (MAP) Pulse Ox O2 Delivery O2 Flow Rate FiO2 09/21/17 04:00 97.5 80 19 108/53 95 Room Air Constitutional: NAD Neurologic: CN 2-12 intact Cardiovascular: RRR Respiratory: CTA Gastrointestinal: S/NT/ND Airway Exam Mallampati Score: Class II MO: full ROM: full Teeth: intact - crowns and bridge intact Dentures: no upper, no lower Anesthesia Pre-op A/P Labs Hematology Test 09/21/17 05:35 White Blood Count 4.2 K/UL (4.8-10.8) #L Red Blood Count 3.68 M/UL (4.20-5.40) L Hemoglobin 10.7 G/DL (12.0-16.0) L Hematocrit 33.1 % (37.0-47.0) L Mean Corpuscular Volume 90 FL (80-99) Mean Corpuscular Hemoglobin 29.1 PG (27.0-31.0) Mean Corpuscular Hemoglobin Concent 32.4 G/DL (32.0-36.0) Red Cell Distribution Width 11.5 % (11.6-14.8) L Platelet Count 198 K/UL (150-450) Mean Platelet Volume 6.7 FL (6.5-10.1) Neutrophils (%) (Auto) 34.8 % (45.0-75.0) L Lymphocytes (%) (Auto) 45.5 % (20.0-45.0) H Monocytes (%) (Auto) 9.2 % (1.0-10.0) Eosinophils (%) (Auto) 9.2 % (0.0-3.0) H Basophils (%) (Auto) 1.3 % (0.0-2.0) Coagulation Test 09/21/17 05:35 Prothrombin Time 10.3 SEC (9.30-11.50) Prothromb Time International Ratio 1.0 (0.9-1.1) Activated Partial Thromboplast Time 26 SEC (23-33) Chemistry Test 09/21/17 05:35 Sodium Level 142 MMOL/L (136-145) Potassium Level 3.2 MMOL/L (3.5-5.1) L Chloride Level 107 MMOL/L (98-107) Carbon Dioxide Level 29 MMOL/L (21-32) Anion Gap 6 mmol/L (5-15) Blood Urea Nitrogen 5 mg/dL (7-18) L Creatinine 0.7 MG/DL (0.55-1.30) Estimat Glomerular Filtration Rate > 60 mL/min (>60) Glucose Level 96 MG/DL (74-106) Calcium Level 7.5 MG/DL (8.5-10.1) L Total Bilirubin 0.5 MG/DL (0.2-1.0) Aspartate Amino Transf (AST/SGOT) 17 U/L (15-37) Alanine Aminotransferase (ALT/SGPT) 24 U/L (12-78) Alkaline Phosphatase 58 U/L (46-116) Total Protein 6.8 G/DL (6.4-8.2) Albumin 3.0 G/DL (3.4-5.0) L Globulin 3.8 g/dL Albumin/Globulin Ratio 0.8 (1.0-2.7) L Triglycerides Level 115 MG/DL (30-150) Cholesterol Level 218 MG/DL (< 200) H LDL Cholesterol 127 mg/dL (<100) H HDL Cholesterol 70 MG/DL (40-60) H Cholesterol/HDL Ratio 3.1 (3.3-4.4) L Lipase 137 U/L (73-393) Thyroid Stimulating Hormone (TSH) 1.001 uiU/mL (0.358-3.740) Studies Pre-op Studies: EKG - NSR 68 BPM Risk Assessment & Plan Assessment: A&Ox4 Plan: GETA Status Change Before Surgery: No Pre-Antibiotics Given Within 1 Hr of Incision: No Jie Rodríguez CRNA Sep 21, 2017 13:14
[2017-09-21] MEDS ORDERED: Ketorolac 30mg Inj IV PRN ×2 (13:15→14:15)
--- NOTE | 2017-09-21 13:18 | Immediate Post-Op Evaluation ---
Immediate Post-Op Evalulation Immediate Post-Op Evalulation Procedure: Lap Cristy Date of Evaluation: Sep 21, 2017 Time of Evaluation: 13:05 IV Fluids: 450 ml NSS Blood Products: 0 Estimated Blood Loss: 50 ml Urinary Output: 0 Blood Pressure Systolic: 106 Blood Pressure Diastolic: 78 Pulse Rate: 102 Respiratory Rate: 23 O2 Sat by Pulse Oximetry: 100 Temperature (Fahrenheit): 97.2 Pain Score (1-10): 0 Nausea: No Vomiting: No Patient Status: awake, reacts, patent Hydration Status: adequate Drug: Ancef 2 gm IV Given Within 1 Hr of Incision: Yes Time Given: 11:55 Jie Rodríguez CRNA Sep 21, 2017 13:18
--- NOTE | 2017-09-21 13:19 | 48 Hour Post Anesthesia Eval ---
Post Anesthesia Evaluation Procedure: Lap Cristy Date of Evaluation: Sep 21, 2017 Time of Evaluation: 13:20 Blood Pressure Systolic: 127 0: 61 Pulse Rate: 84 Respiratory Rate: 12 Temperature (Fahrenheit): 97.2 O2 Sat by Pulse Oximetry: 100 Airway: patent Nausea: No Vomiting: No Pain Intensity: 0 Hydration Status: adequate Mental Status/LOC: patient returned to baseline Follow-up care needed: patient intructions given Jie Rodríguez CRNA Sep 21, 2017 13:19
[2017-09-21] MEDS ORDERED: Acetaminophen (Non formulary) 100 ML IV ONE (13:30)
--- NOTE | 2017-09-21 14:05 | Brief Operative Note ---
Immediate Post Operative Note Operative Note Pre-op Diagnosis: gallstone pancreatitis Procedure: laparoscopic cholecystectomy Post-op Diagnosis: same as pre-op Findings: consistent w/pre-op dx studies Surgeon: harjeet Anesthesiologist: rené kuhn CRNA Anesthesia: general Specimen: yes - gallbladder and stones Complications: none Condition: stable Fluids: see records Estimated Blood Loss: minimal Drains: none Implant(s) used?: No Adolfo Terry Sep 21, 2017 14:05
[2017-09-21] MEDS ORDERED: Norco 5mg/325mg tab ORAL PRN (14:15)
[2017-09-21] MEDS ORDERED: Sennosides 8.6mg ORAL PRN (14:15)
[2017-09-21] MEDS ORDERED: Norco 10mg/325mg tab ORAL PRN (14:15)
[2017-09-21] MEDS ORDERED: Milk of Magnesia 30ml Ud ORAL PRN (14:15)
[2017-09-21] MEDS ORDERED: Morphine Sulfate 2mg/ml Inj IVP PRN ×2 (15:00)
[2017-09-21] MEDS ORDERED: Metoclopramide 10mg/2ml Inj IVP PRN (15:00)
--- NOTE | 2017-09-21 15:48 | General Progress Note ---
Assessment/Plan Problem List: (1) Acute gallstone pancreatitis ICD Codes: K85.10 - Biliary acute pancreatitis without necrosis or infection SNOMED: 033906153 (2) Biliary colic ICD Codes: K80.50 - Calculus of bile duct without cholangitis or cholecystitis without obstruction SNOMED: 32702094 (3) Acute biliary pancreatitis ICD Codes: K85.10 - Biliary acute pancreatitis without necrosis or infection SNOMED: 615374301 Qualifiers: Qualified Codes: K85.10 - Biliary acute pancreatitis without necrosis or infection Assessment/Plan diet per surgery pain meds discussed with pt reg her lipid panel Discussed with RN Subjective Allergies: Coded Allergies: TETRACYCLINES (Verified Allergy, Unknown, 08/29/17) Uncoded Allergies: FRAGRANCES (Allergy, Unknown, 08/29/17) Subjective doing ok post op Objective Last 24 Hour Vital Signs Date Time Temp Pulse Resp B/P (MAP) Pulse Ox O2 Delivery O2 Flow Rate FiO2 09/21/17 14:16 97.8 09/21/17 14:16 97.8 09/21/17 14:10 85 15 123/67 100 Nasal Cannula 3.0 09/21/17 14:00 97.8 88 16 125/65 100 Nasal Cannula 3.0 09/21/17 13:50 71 15 125/65 100 Nasal Cannula 3.0 09/21/17 13:40 74 14 130/65 100 Nasal Cannula 3.0 09/21/17 13:30 70 15 130/59 100 Nasal Cannula 3.0 09/21/17 13:23 97.2 09/21/17 13:20 86 13 127/61 100 Simple Mask 6.0 09/21/17 13:19 84 12 100 09/21/17 13:18 102 23 100 09/21/17 13:10 88 13 121/63 100 Simple Mask 6.0 09/21/17 13:05 88 15 118/63 100 Simple Mask 6.0 09/21/17 12:58 97.2 88 14 106/78 100 Simple Mask 6.0 09/21/17 04:00 97.5 80 19 108/53 95 Room Air 09/21/17 00:00 98.5 81 20 102/61 96 Room Air 09/20/17 20:00 97.7 76 18 104/62 95 09/20/17 16:10 98.3 09/20/17 16:00 98.3 75 18 113/65 97 Intake and Output 09/20/17 09/21/17 19:00 07:00 Intake Total 935.00 ml Balance 935.00 ml Intake IV Total 935.00 ml Laboratory Tests 09/21/17 05:35: White Blood Count 4.2#L, Red Blood Count 3.68L, Hemoglobin 10.7L, Hematocrit 33.1L, Mean Corpuscular Volume 90, Mean Corpuscular Hemoglobin 29.1, Mean Corpuscular Hemoglobin Concent 32.4, Red Cell Distribution Width 11.5L, Platelet Count 198, Mean Platelet Volume 6.7, Neutrophils (%) (Auto) 34.8L, Lymphocytes (%) (Auto) 45.5H, Monocytes (%) (Auto) 9.2, Eosinophils (%) (Auto) 9.2H, Basophils (%) (Auto) 1.3, Prothrombin Time 10.3, Prothromb Time International Ratio 1.0, Activated Partial Thromboplast Time 26, Sodium Level 142, Potassium Level 3.2L, Chloride Level 107, Carbon Dioxide Level 29, Anion Gap 6, Blood Urea Nitrogen 5L, Creatinine 0.7, Estimat Glomerular Filtration Rate > 60, Glucose Level 96, Calcium Level 7.5L, Total Bilirubin 0.5, Aspartate Amino Transf (AST/SGOT) 17, Alanine Aminotransferase (ALT/SGPT) 24, Alkaline Phosphatase 58, Total Protein 6.8, Albumin 3.0L, Globulin 3.8, Albumin/Globulin Ratio 0.8L, Triglycerides Level 115, Cholesterol Level 218H, LDL Cholesterol 127H, HDL Cholesterol 70H, Cholesterol/HDL Ratio 3.1L, Lipase 137, Thyroid Stimulating Hormone (TSH) 1.001 Height (Feet): 5 Height (Inches): 4.00 Weight (Pounds): 150 Cardiovascular: normal rate Respiratory/Chest: lungs clear Edema: no edema noted Generalized MARIA DEL CARMEN VILLA Sep 21, 2017 15:48
[2017-09-21] MEDS: Morphine Sulfate 4mg/ml Inj IVP PRN (15:58)
[2017-09-21] MEDS: Docusate 100mg cap ORAL SCH (18:00)
--- NOTE | 2017-09-21 23:00 | Operative Note - Dictated ---
DATE OF OPERATION: 09/21/2017 PREOPERATIVE DIAGNOSIS: Gallstone pancreatitis. POSTOPERATIVE DIAGNOSIS: Gallstone pancreatitis. OPERATION PERFORMED: Laparoscopic cholecystectomy. ATTENDING SURGEON: Adolfo Terry M.D. PIPE ROLLER: None. ANESTHESIOLOGIST: Jie Rodríguez CRNA. 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 ESTIMATED BLOOD LOSS: Minimal. IV FLUIDS: Please see anesthesia records. COMPLICATIONS: None. SPECIMENS: Gallbladder and contained stones sent to pathology for review. FLUIDS: Please see anesthesia records. DRAINS: None. WOUND CLASSIFICATION: Class 2. COUNTS: Sponge and needle count correct x2. ANTIBIOTICS: The patient was on scheduled IV antibiotics prior to entering the operating room. INDICATIONS FOR PROCEDURE: This is a 62-year-old female with a long history of biliary colic. The patient states that over 20 years ago, she had a significant pain/symptoms intermittently and has changed her diet to accommodate. Recently, symptoms have been worsening with dairy intake and fatty foods. The patient had a dairy meal on this event, had significant epigastric and right upper quadrant pain that was intractable and required emergency department visit at which time, she was found to have cholelithiasis and pancreatitis. No evidence of choledocholithiasis. Given the patient's history and current presentation, laparoscopic cholecystectomy was indicated and recommended. The risks, benefits, and alternatives were discussed with the patient in detail and the patient expressed understanding and consented to surgery. OPERATIVE NOTE: The patient was taken to the operating room and placed on the operating table supine position with bilateral arm out. All bony prominences were well padded with GelPads. SCDs were placed. No Granados catheter was inserted given the patient had just voided prior to entering the operating room. The patient was on scheduled IV antibiotics prior to entering the operating room. Preoperative time-out was taken identifying the patient, procedure, operative staff, and surgical staff. The abdomen was prepped and draped in standard surgical fashion. An infraumbilical incision was made with a fresh #11 blade scalpel. Incision was taken down to the fascia, which was elevated and incised. The entry into the abdomen was confirmed using the open Jasson technique. A Jasson trocar was then inserted and the abdomen was insufflated to 12-15 mmHg. The patient tolerated the insufflation well. Laparoscope was inserted and the abdomen was inspected. No injury from initial trocar placement was noted. In the left upper quadrant, gallbladder was noted with some filmy adhesions of the omentum. In the left upper quadrant, the stomach was otherwise normal. In the bilateral lower quadrant and pelvis, there were no abnormalities identified. The patient was then placed in reverse Trendelenburg with left side-down position. Secondary trocars were placed under direct visualization beginning with a 12 mm trocar in the epigastric region followed by two 5 mm trocars in the right subcostal region. Secondary trocars were placed without complication. The filmy adhesions from the omentum to the gallbladder were dissected down with blunt dissection and electrocautery as necessary. The dome of the gallbladder was then grasped and retracted over the liver. Using the midclavicular port, the infundibulum was grasped and dissection began. There was a significant amount of inflammatory tissue around the infundibulum and edema of the peritoneal lining surrounding the gallbladder. The peritoneal lining was incised and retracted inferiorly. With appropriate dissection, the cystic duct and artery were circumferentially dissected out. Once this was complete, the critical view was obtained identifying the cystic duct, cystic artery, cystic plate, the lymph node, and no other structures entering directly into the gallbladder other than the duct and artery. At this time, the cystic artery and duct were then doubly clipped and divided. The gallbladder was then dissected off the gallbladder bed using electrocautery. The gallbladder was then placed in an endoscopic retrieval bag and removed through the umbilical port without complication. The liver bed was then inspected and hemostasis obtained with electrocautery. The cystic duct and artery clips were visualized and noted to be in good positioning without any leakage of bile or oozing of blood. At this time, satisfactory cholecystectomy was performed and we began the conclusion of our procedure. The secondary trocars were removed under direct visualization. The abdomen was then allowed to desufflate. The umbilical fascia site was closed using a [id number] #0 Vicryl suture. The skin incisions were then cleansed and closed using 4-0 Monocryl interrupted subcuticular sutures. Local anesthetic was injected throughout the entire procedure as necessary. Upon completion of the procedure, the gallbladder was palpated and stones were noted. At completion of procedure, the patient was extubated and taken to the postanesthetic care unit in stable condition. Adolfo Terry M.D. DR: Brie JOB#: [id number] CC: GORDON
[2017-09-22 00:54] VITALS: BP 140/78
[2017-09-22] MEDS: Morphine Sulfate 4mg/ml Inj IVP PRN (02:12)
[2017-09-22] MEDS: NS IVPB SCH ×2 (02:53→11:12)
[2017-09-22] MEDS: ZOSYN IVPB SCH ×2 (02:53→11:12)
[2017-09-22 04:00] VITALS: BP 117/70
[2017-09-22 04:55] LABS: BASOPHILS % (AUTO) 0.5 % (0.0-2.0); EOSINOPHILS % (AUTO) 0.1 % (0.0-3.0); LYMPHOCYTES % (AUTO) 13.3 % (20.0-45.0); MEAN CORPUSCULAR HEMOGLOBIN 28.8 PG (27.0-31.0); MEAN CORPUSCULAR HGB CONC 32.5 G/DL (32.0-36.0); MEAN CORPUSCULAR VOLUME 89 FL (80-99); MEAN PLATELET VOLUME 6.5 FL (6.5-10.1); MONOCYTES % (AUTO) 6.8 % (1.0-10.0); NEUTROPHILS % (AUTO) 79.3 % (45.0-75.0); PLATELET COUNT 204 K/UL (150-450); RED BLOOD COUNT 3.88 M/UL (4.20-5.40); RED CELL DISTRIBUTION WIDTH 11.5 % (11.6-14.8); WHITE BLOOD COUNT 11.3 K/UL (4.8-10.8)
[2017-09-22 05:18] LABS: ANION GAP 9 mmol/L (5-15); CALCIUM 7.7 MG/DL (8.5-10.1); CARBON DIOXIDE 25 MMOL/L (21-32); CHLORIDE 107 MMOL/L (98-107); CREATININE 0.7 MG/DL (0.55-1.30); GLOMERULAR FILTRATION RATE > 60 mL/min (>60); POTASSIUM 3.3 MMOL/L (3.5-5.1); SODIUM 140 MMOL/L (136-145)
[2017-09-22] MEDS: D5 1/2NS 1,000 ML IV SCH (07:54)
[2017-09-22 08:00] VITALS: BP 110/68
[2017-09-22] MEDS: Pantoprazole Inj IV SCH (08:57)
[2017-09-22] MEDS: Docusate 100mg cap ORAL SCH (09:00)
--- NOTE | 2017-09-22 11:16 | General Progress Note ---
Progress Note Progress Note surgery: no acute events. doing well. comfortable. had some gas pains last night but since resolved. no n/v/f/c. passing flatus. tolerating clears. incisional tenderness as anticipated but no abdominal pain. ambulatory. afebrile, HD stable, labs reviewed abdomen soft, nt/nd, bs+, incisions c/d/i POD #1 s/p lap bakari for gallstone pancreatitis. recovering -diet as tolerated -activity as tolerated -okay to shower -Rx (norco, colace) -follow up with me in 1 week for wound check. okay to d/c home from surgical standpoint Adolfo Terry Sep 22, 2017 11:16
--- NOTE | 2017-09-22 12:09 | Consultation ---
Consult Note Assessment/Plan Dc dictated # [id number] MARIA DEL CARMEN VILLA Sep 22, 2017 12:09
[2017-09-22] MEDS ORDERED: COLACE100 MG ORAL (12:32)
[2017-09-22] MEDS ORDERED: NORCO 5-325 TA1 EAC1 ORAL (12:32)
[2017-09-22 12:52] VITALS: BP 94/76
[2017-09-22] MEDS ORDERED: D5 1/2NS 1000ml IV ONE (14:00)
--- NOTE | 2017-09-22 22:41 | General Progress Note ---
Assessment/Plan Assessment/Plan Assessment - Recurrent RUQ pain - cholelithiasis - s/p bakari - elevated Lipase Plans - diet per surgery - d/c planning - outpt f/u Subjective Allergies: Coded Allergies: TETRACYCLINES (Verified Allergy, Unknown, 08/29/17) Uncoded Allergies: FRAGRANCES (Allergy, Unknown, 08/29/17) Subjective POD #1 some wound pain tolerating liquids for discharge today Objective Last 24 Hour Vital Signs Date Time Temp Pulse Resp B/P (MAP) Pulse Ox O2 Delivery O2 Flow Rate FiO2 09/22/17 12:52 98.1 66 20 94/76 97 09/22/17 09:50 98.9 09/22/17 08:00 97.9 76 18 110/68 98 09/22/17 04:00 98.9 75 19 117/70 99 09/22/17 00:54 97.7 64 18 140/78 99 Intake and Output 09/21/17 09/22/17 19:00 07:00 Intake Total 1120 ml 743.75 ml Output Total 50 ml Balance 1070 ml 743.75 ml Intake Oral 420 ml IV Total 700 ml 743.75 ml Output Estimated Blood Loss 50 ml Laboratory Tests 09/22/17 04:30: White Blood Count 11.3#H, Red Blood Count 3.88L, Hemoglobin 11.2L, Hematocrit 34.4L, Mean Corpuscular Volume 89, Mean Corpuscular Hemoglobin 28.8, Mean Corpuscular Hemoglobin Concent 32.5, Red Cell Distribution Width 11.5L, Platelet Count 204, Mean Platelet Volume 6.5, Neutrophils (%) (Auto) 79.3H, Lymphocytes (%) (Auto) 13.3L, Monocytes (%) (Auto) 6.8, Eosinophils (%) (Auto) 0.1, Basophils (%) (Auto) 0.5, Sodium Level 140, Potassium Level 3.3L, Chloride Level 107, Carbon Dioxide Level 25, Anion Gap 9, Blood Urea Nitrogen 6L, Creatinine 0.7, Estimat Glomerular Filtration Rate > 60, Glucose Level 110H, Calcium Level 7.7L Height (Feet): 5 Height (Inches): 4.00 Weight (Pounds): 150 Objective WDWN NCAT Supple CTA RRR abd soft ND NT no edema non focal ADRIANA ROLAND Sep 22, 2017 22:41
--- NOTE | 2017-09-22 22:45 | Discharge Summary ---
DATE OF ADMISSION: 09/20/2017 DATE OF DISCHARGE: 09/22/2017 CHIEF COMPLAINT: Abdominal pain. HISTORY OF PRESENT ILLNESS: This is a 62-year-old white female, who was admitted with abdominal pain. A CT scan showed evidence of gallstones. Also, the patient's lipase was elevated at 448. The patient was admitted with diagnosis of gallstone pancreatitis. HOSPITAL COURSE: The patient was started on IV fluids. She was kept NPO on pain medications. The patient was seen by Dr. Adolfo Terry for renal surgery. He recommended laparoscopic cholecystectomy. This was done the following day. The patient did well. The patient's diet was advanced and finally, she was discharged home in stable condition. DISCHARGE DIAGNOSIS: Acute gallstone pancreatitis. DISCHARGE MEDICATIONS: The patient was on [place] p.r.n. for pain. DIET: Regular. Bladimir Parsons M.D. DR: CHRIS JOB#: [id number] CC:
--- NOTE | 2017-10-04 12:50 | Cardiology Report ---
APPROVED REPORT EXAM: Two-dimensional and M-mode echocardiogram with Doppler and color Doppler. INDICATION Pre-Op M-Mode DIMENSIONS IVSd0.9 (0.7-1.1cm)Left Atrium (MM)3.9 (1.6-4.0cm) LVDd4.9 (3.5-5.6cm)Aortic Root2.2 (2.0-3.7cm) PWd0.7 (0.7-1.1cm)Aortic Cusp Exc.1.8 (1.5-2.0cm) LVDs3.0 (2.5-4.0cm) PWs1.3 cm Normal left ventricular chamber size, systolic function and wall motion. Left ventricular ejection fraction estimated to be 55 %. No evidence of left ventricular hypertrophy. Anterior Echo-free space, may be due to pericardial fat or effusion. All other cardiac chamber sizes are within normal limits. Focal aortic valve sclerosis with adequate cusp excursion. Thickened mitral valve leaflets with normal excursion. Mitral annulus and aortic root calcification. Normal pulmonic valve structure. Normal tricuspid valve structure. IVC dilated at 2.4 cm with physiologic collapse suggestive of increased RA pressure. A color flow and spectral Doppler study was performed and revealed: No aortic regurgitation. No mitral regurgitation. Mitral inflow indicates normal left ventricular diastolic function. Mild tricuspid regurgitation. Tricuspid systolic velocities suggests peak right ventricular systolic pressure of 29 mmHg. No pulmonic regurgitation present.
== END 2017-09-22 14:01 | disposition home or self-care (01) | DRG 417 ==
LOC: EMR 22:20 → 3E 09-20 00:25 → EDBEDREQ 09-20 05:55
PROC: 0FT44ZZ Resection of Gallbladder, Percutaneous Endoscopic Approach (ICD-10-PCS; principal; 2017-09-21 11:00)
DX: K80.10 Calculus of gallbladder with chronic cholecystitis without obstruction (principal); K85.10 Biliary acute pancreatitis without necrosis or infection; E03.9 Hypothyroidism, unspecified
CPT/HCPCS: 36415; 71010; 76700; 80048; 80053; 80061; 81003; 82150; 82962; 83690; 84443; 85025; 85610; 85730; 93005; 93306; 94003; 94150; 99285; J2250; J2405; J2710; J2765